=== PATIENT | female | born 1965 | race African-American/Black ===

== ENCOUNTER 2017-11-30 08:49 | Emergency (ER) | payer SELFPAY ==
[~2017-11-30] VITALS: Ht 157.5 cm; Wt 60.0 kg
[2017-11-30 08:56] VITALS: BP 103/68; PULSE 67; RESP 16; TEMP 97.5; O2SAT 99
--- NOTE | 2017-11-30 09:34 | PD ---
HPI Chief Complaint: Chest Pain Time Seen by Provider: 09:15 Travel History International Travel<30 days: No Contact w/Intl Traveler<30days: No Traveled to known affect area: No History of Present Illness HPI 52-year-old -[place] female presents emergency department with 2 week history of bilateral occasional wrist and hand numbness, and recent increased pain in the left shoulder and neck with twitching to the left anterior chest. Patient denies nausea, vomiting, shortness of breath, cough, increased pain with exertion, or other cardiac symptoms. Patient denies recent illness or fever. No specific injury. 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 Pain in the neck is chronic according the patient in approximately 4 out of 10. Patient denies weakness. She denies headache or significant neck pain. She has no known drug allergies PFSH Past Medical History Medical History: Denies Significant Hx Tetanus Vaccination: Unknown Influenza Vaccination: No ?: Not Past Surgical History Surgical History: No Previous Surgery Social History Alcohol Use: Yes (sometimes) Tobacco Use: No Substance Use: Yes (marijuana) Allergies-Medications (Allergen,Severity, Reaction): Coded Allergies: No Known Allergies (Unverified , 11/30/17) Reported Meds & Prescriptions Reported Meds & Active Scripts Active Flexeril (Cyclobenzaprine HCl) 10 Mg Tab 10 Mg PO HS Ibuprofen 600 Mg Tab 600 Mg PO Q6H PRN Review of Systems Except as stated in HPI: all other systems reviewed are Neg General / Constitutional: No: Fever Eyes: No: Visual changes HENT: No: Headaches Cardiovascular: No: Chest Pain or Discomfort Respiratory: No: Shortness of Breath Gastrointestinal: No: Abdominal Pain Genitourinary: No: Dysuria Musculoskeletal: Positive: Myalgias, No: Arthralgias, Limited ROM, Pain Skin: No Rash Neurologic: Positive: Paresthesia (See history of present illness), No: Weakness Psychiatric: No: Depression Endocrine: No: Polydipsia Hematologic/Lymphatic: No: Easy Bruising Physical Exam Narrative GENERAL: Patient appears in no acute distress SKIN: Warm and dry. Normal color. Normal turgor. No rash HEAD: Atraumatic. Normocephalic. EYES: Pupils equal and round. No scleral icterus. No injection or drainage. ENT: No nasal bleeding or discharge. Mucous membranes pink and moist. Pharynx is clear. Airways patent NECK: Trachea midline. No bony tenderness or step-off. No significant soft tissue tenderness. Range of motion is full CARDIOVASCULAR: Regular rate and rhythm. RESPIRATORY: No accessory muscle use. Clear to auscultation. Breath sounds equal bilaterally. No reproducible symptoms with palpation of the chest wall. GASTROINTESTINAL: Abdomen soft, non-tender, nondistended. Hepatic and splenic margins not palpable. MUSCULOSKELETAL: Extremities without clubbing, cyanosis, or edema. No obvious deformities. Patient is obvious muscle spasms in the lower scalenes and upper trapezius of the left greater than the right. Palpation of this area reproduces the patient's symptoms. Patient has positive Tinel sign bilaterally more on the left than the right consistent with carpal tunnel. Negative Tinel' s at the ulnar nerve. Negative loss of strength and audiovisual tech strength or upper extremities. NEUROLOGICAL: Awake and alert. No obvious cranial nerve deficits. Motor grossly within normal limits. Five out of 5 muscle strength in the arms and legs. Normal speech. PSYCHIATRIC: Appropriate mood and affect; insight and judgment normal. Data Data Last Documented VS Vital Signs Date Time Temp Pulse Resp B/P (MAP) Pulse Ox O2 Delivery O2 Flow Rate FiO2 11/30/17 08:56 97.5 67 16 103/68 (80) 99 Orders Orders Electrocardiogram (11/30/17 ) Splint Or Brace Apply/Monitor (11/30/17 09:25) Splint Or Brace Apply/Monitor (11/30/17 09:25) MDM Medical Decision Making Medical Screen Exam Complete: Yes Emergency Medical Condition: Yes Differential Diagnosis Repetitive motion injury. Carpal tunnel syndrome. Muscle spasm. Narrative Course EKG is performed at Dr. Wallis's request. I do not suspect this is cardiac in nature. I suspect the patient has repetitive motion injuries to both upper extremities with carpal tunnel present in the left and right wrist. Patient is treated with ibuprofen 600 mg 4 times daily #40. Patient also given Flexeril 10 mg nightly #20. Patient is given carpal tunnel splints bilaterally. Patient is given information regarding carpal tunnel and should follow-up if symptoms continue or worsen as discussed. Diagnosis Primary Impression: Carpal tunnel syndrome on both sides Additional Impression: Muscle spasm of left shoulder area Patient Instructions: Carpal Tunnel Syndrome (DC), General Instructions, Muscle Spasm (ED) Departure Forms: Work Release Enter return to work date: December 04, 2017 Additional Instructions: I suspect the patient has repetitive motion injuries to both upper extremities with carpal tunnel present in the left and right wrist. Patient is treated with ibuprofen 600 mg 4 times daily #40. Patient also given Flexeril 10 mg nightly #20. Patient is given carpal tunnel splints bilaterally. Patient is given information regarding carpal tunnel and should follow-up if symptoms continue or worsen as discussed. Med/Other Pt SpecificInfo: Prescription(s) given Scripts Cyclobenzaprine (Flexeril) 10 Mg Tab 10 MG PO HS for Muscle Spasm, #15 TAB 0 Refills Prov: Sonia Wallis DO 11/30/17 Ibuprofen (Ibuprofen) 600 Mg Tab 600 MG PO Q6H Y for Pain/Inflammation, #40 TAB 0 Refills Prov: Sonia Wallis DO 11/30/17 Disposition: 01 DISCHARGE HOME Condition: Stable Sotero Stephenson November 30, 2017 09:34
[2017-11-30] MEDS ORDERED: CYCL10TA PO (09:35)
[2017-11-30] MEDS ORDERED: IBUP-232 PO (09:35)
--- NOTE | 2017-11-30 10:18 | PD ---
Physical Exam Narrative I, Dr. Wallis, have reviewed the advance practice practitioner's documentation and am in agreement, met with the patient face to face, made the diagnosis, and the medical decision making was done by me. *My assessment and Findings: Musculoskeletal pain vs. cervical radiculopathy 52yo F with no PMH here with left arm tingling that has been there for a while. 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 Said she has been having twitching in her left chest that is worst with left arm movement. Denies any fever, sob, n/v, abdominal pain, focal weakness or trauma. Since pt is 52yo and a cig smoker, will do EKG even though I do not feel that this is cardiac chest pain. EKG showed sinus bradycardia at 45bpm. TWI V2, no prior to compare. No ST segment elevation or depression. Pt is well appearing. Instructed pt to rest and take ibuprofen as needed for pain. Instructed pt to follow up with her primary care physician and return if symptoms worsen. Data Data Last Documented VS Vital Signs Date Time Temp Pulse Resp B/P (MAP) Pulse Ox O2 Delivery O2 Flow Rate FiO2 11/30/17 08:56 97.5 67 16 103/68 (80) 99 Orders Orders Electrocardiogram (11/30/17 ) Splint Or Brace Apply/Monitor (11/30/17 09:25) Splint Or Brace Apply/Monitor (11/30/17 09:25) MDM Supervised Visit with [facility]: Yes Interpretation(s) EKG: Sinus bradycardia at 45bpm. Normal axis. TWI III, V2. No prior to compare. No ST segment elevation or depression. Diagnosis Primary Impression: Carpal tunnel syndrome on both sides Additional Impression: Muscle spasm of left shoulder area Patient Instructions: General Instructions, Carpal Tunnel Syndrome (DC), Muscle Spasm (ED) Departure Forms: Tests/Procedures, Work Release Enter return to work date: December 03, 2017 Additional Instruction: I suspect the patient has repetitive motion injuries to both upper extremities with carpal tunnel present in the left and right wrist. Patient is treated with ibuprofen 600 mg 4 times daily #40. Patient also given Flexeril 10 mg nightly #20. Patient is given carpal tunnel splints bilaterally. Patient is given information regarding carpal tunnel and should follow-up if symptoms continue or worsen as discussed. Med/Other Pt SpecificInfo: Prescription(s) given Scripts Cyclobenzaprine (Flexeril) 10 Mg Tab 10 MG PO HS for Muscle Spasm, #15 TAB 0 Refills Prov: Sonia Wallis DO 11/30/17 Ibuprofen (Ibuprofen) 600 Mg Tab 600 MG PO Q6H Y for Pain/Inflammation, #40 TAB 0 Refills Prov: Sonia Wallis DO 11/30/17 Disposition: 01 DISCHARGE HOME Condition: Stable Sonia Wallis DO November 30, 2017 10:18
--- NOTE | 2017-11-30 14:03 | EKG ---
Date Performed: 11/30/2017 Time Performed: 09:52:16 PTAGE: 52 years EKG: SINUS BRADYCARDIA BORDERLINE ECG NO PREVIOUS TRACING DOCTOR: Kelly Malone Interpretating Date/Time 11/30/2017 13:59:06
== END 2017-11-30 11:18 | disposition home or self-care (01) ==
LOC: NEPD 08:49
DX: G56.03 Carpal tunnel syndrome, bilateral upper limbs (principal); M62.838 Other muscle spasm; R00.1 Bradycardia, unspecified; F12.90 Cannabis use, unspecified, uncomplicated
CPT/HCPCS: 93005; 99283; L3908

== ENCOUNTER 2018-01-22 03:25 | Emergency (ER) | payer SELFPAY ==
[~2018-01-22] VITALS: Ht 157.5 cm; Wt 69.0 kg
[~2018-01-22 03:25] MED LIST: CYCL10TA PO; IBUP-232 PO
[2018-01-22 03:38] VITALS: BP 172/83; PULSE 65; RESP 16; TEMP 98.3; O2SAT 98
[2018-01-22] MEDS ORDERED: AUGM875T3 PO (04:15)
[2018-01-22] MEDS ORDERED: ACETAMINOPHEN/HYDROcodone 325 MG/5 MG TAB PO ONE (04:15)
[2018-01-22] MEDS ORDERED: AMOXICILLIN/CLAVULANATE K 500 MG TAB PO ONE (04:15)
[2018-01-22] MEDS ORDERED: NORC5TAB PO (04:15)
--- NOTE | 2018-01-22 04:21 | PD ---
HPI Chief Complaint: ENT Complaint Time Seen by Provider: 04:09 Travel History International Travel<30 days: No Contact w/Intl Traveler<30days: No Traveled to known affect area: No History of Present Illness HPI 52-year-old black female presents emergency department complains of right ear pain over the last 24 hours. She states the pain is severe. She denies any cold symptoms. She does use Q-tips to clean her ears. No trauma. No fever, chills, runny nose, cough or congestion. Symptoms are moderate. No exacerbating or alleviating factors. PFSH Past Medical History Medical History: Denies Significant Hx Immunizations Current: Yes Tetanus Vaccination: < 5 Years Influenza Vaccination: No ?: Not Past Surgical History Surgical History: No Previous Surgery Social History Alcohol Use: Yes (sometimes) Tobacco Use: Yes Substance Use: Yes (marijuana) Allergies-Medications (Allergen,Severity, Reaction): Coded Allergies: No Known Allergies (Unverified , 01/22/18) Reported Meds & Prescriptions Reported Meds & Active Scripts Active Milton (Hydrocodone-Acetaminophen) 5 Mg-325 Mg Tab 1 Tab PO Q6H PRN Augmentin (Amoxicillin-Clavulanate) 875-125 Mg Tab 1 Tab PO BID 10 Days Flexeril (Cyclobenzaprine HCl) 10 Mg Tab 10 Mg PO HS Ibuprofen 600 Mg Tab 600 Mg PO Q6H PRN Review of Systems General / Constitutional: No: Fever Eyes: No: Visual changes HENT: Positive: Dental Difficulties, Earache, No: Headaches, Sore Throat, Congestion, Neck Pain, Ear Discharge Cardiovascular: No: Chest Pain or Discomfort Respiratory: No: Shortness of Breath Gastrointestinal: No: Abdominal Pain Genitourinary: No: Dysuria Musculoskeletal: No: Pain Skin: No Rash Neurologic: No: Weakness Psychiatric: No: Depression Endocrine: No: Polydipsia Hematologic/Lymphatic: No: Easy Bruising Physical Exam Narrative GENERAL: Well-developed, well-nourished in no acute distress. Nontoxic appearing. HEAD: Normocephalic, atraumatic. EYES: Pupils equal round and reactive. Extraocular motions intact. No scleral icterus. No injection or drainage. ENT: The right TM is distended with erythema and bulging the left TM is clear without erythema. The external auditory canals clear. Nose: clear . Posterior pharynx is pink and moist. No tonsillar edema or exudate. Uvula midline. Airway patent. NECK: Trachea midline.Supple, nontender, moves head freely. No central bony tenderness or spasm. CARDIOVASCULAR: Regular rate and rhythm without murmurs, gallops, or rubs. RESPIRATORY: Clear to auscultation. Breath sounds equal bilaterally. No wheezes , rales, or rhonchi. GASTROINTESTINAL: Abdomen soft, non-tender, nondistended. No hepato-splenomegaly , or palpable masses. No guarding. EXTREMITIES: No clubbing, cyanosis, or edema. No joint tenderness, effusion, or edema noted. BACK: Nontender without deformity or crepitance. No flank tenderness. Data Data Last Documented VS Vital Signs Date Time Temp Pulse Resp B/P (MAP) Pulse Ox O2 Delivery O2 Flow Rate FiO2 01/22/18 03:38 98.3 65 16 172/83 (112) 98 Orders Orders Amoxicil-Clavulanate (Augmentin) (01/22/18 04:15) Acetamin-Hydrocod 325-5 Mg (Milton 5-325 (01/22/18 04:15) MDM Medical Decision Making Medical Screen Exam Complete: Yes Emergency Medical Condition: Yes Medical Record Reviewed: Yes Differential Diagnosis Differential diagnosis: Otitis media, otitis externa, mastoiditis, dental infection Narrative Course Patient given Augmentin 875 prescription. She is given her first dose of Augmentin 500 mg and Milton 5 mg p.o. here in the ER. This is right otitis media Diagnosis Primary Impression: Right otitis media Patient Instructions: General Instructions Additional Instructions: Rest. Augmentin. 3 Advil every 6 hours Milton for additional pain. Follow-up with a medical doctor in 1 week Med/Other Pt SpecificInfo: Prescription(s) given Scripts Hydrocodone-Acetaminophen (Milton) 5 Mg-325 Mg Tab 1 TAB PO Q6H Y for PAIN, #10 TAB 0 Refills Prov: Dominga Fortune MD 01/22/18 Amoxicillin-Clavulanate (Augmentin) 875-125 Mg Tab 1 TAB PO BID for Infection for 10 Days, #20 TAB 0 Refills Prov: Dominga Fortune MD 01/22/18 Disposition: 01 DISCHARGE HOME Jayden Avila Jan 22, 2018 04:20
== END 2018-01-22 04:30 | disposition home or self-care (01) ==
LOC: NEPD 03:25
DX: H66.91 Otitis media, unspecified, right ear (principal); F12.90 Cannabis use, unspecified, uncomplicated; Z72.0 Tobacco use
CPT/HCPCS: 99283